=== PATIENT | female | born 1955 | race Two or more races ===

== ENCOUNTER 2025-05-29 22:15 | Emergency (ER) | payer OTHER ==
[~2025-05-29] VITALS: Ht 154.9 cm; Wt 65.8 kg
[2025-05-30] MEDS ORDERED: ONDANSETRON HCL 2 MG/ML VIAL IV STA (00:37)
[2025-05-30] MEDS ORDERED: FAMOTIDINE/PF 20 MG/2 ML VIAL IV PUSH STA (00:37)
[2025-05-30] MEDS ORDERED: ONDANSETRON HCL 2 MG/ML VIAL ONE (01:19)
[2025-05-30] MEDS ORDERED: FAMOTIDINE/PF 20 MG/2 ML VIAL ONE (01:19)
[2025-05-30 02:26] LABS: BASO % 0.7 % (0.1-1.2); EOS # 0.05 (0.04-0.54); EOS % 1.1 % (0.7-7.0); LYMPH # 2.10 (1.18-3.74); LYMPH % 47.0 % (19.3-53.1); MEAN PLATELET VOLUME 9.60 fl (9.4-12.4); MONO # 0.40 (0.24-0.82); MONO % 8.9 % (4.7-12.5); NEUT # 1.89 (1.56-6.13); NEUT % 42.3 % (34.0-71.1); RED CELL DISTRIBUTION WIDTH 12.9 % (11.6-14.4)
[2025-05-30 02:56] LABS: ALT/SGPT 33.0 U/L (12-78); AST/SGOT 20.0 U/L (15-37); BILIRUBIN TOTAL 1.37 mg/dL (0.3-1.2); BUN CREA RATIO 26.0 (7.0-25.0); CREATININE SERUM 0.62 mg/dL (0.55-1.02); GFR 96.01; GLOBULINA 3.3 G/DL (2.4-3.5); GLUCOSE FASTING 83.0 mg/dL (65-100); OSMOLALITY SERUM 283.0 MOSM/KG (275-295)
== END 2025-05-30 04:07 | disposition home or self-care (01) ==
LOC: ER 22:15
PROVIDERS: General Practice
DX: K29.70 Gastritis, unspecified, without bleeding (principal)
CPT/HCPCS: 36415; 96365; 99282; J2405; J3490